=== PATIENT | female | born 1940 | race Hispanic/Latino ===

== ENCOUNTER 2018-11-15 06:37 | Day surgery (SDC) | payer MEDICARE, OTHER ==
[2018-11-15 07:08] VITALS: TEMP 98
[2018-11-15] MEDS ORDERED: Propofol 10 mg/ml Inj (20 ML) ONE (09:30)
[2018-11-15] MEDS ORDERED: Sodium Chloride 0.9% 1,000 ML IV SCH (09:45)
[2018-11-15 11:10] VITALS: BP 129/63; PULSE 69; RESP 14; O2SAT 96
== END 2018-11-15 11:37 | disposition home or self-care (01) ==
LOC: ENDO 06:37
PROVIDERS: ATTEND Specialist
DX: K51.90 Ulcerative colitis, unspecified, without complications (principal); K57.30 Diverticulosis of large intestine without perforation or abscess without bleeding; K64.8 Other hemorrhoids; I10 Essential (primary) hypertension; D64.9 Anemia, unspecified
CPT/HCPCS: 45380; 87045; 87177; 87209; 87324; 88305; J2001; J2704; J7030; J7040